=== PATIENT | female | born 1940 | race Two or more races ===

== ENCOUNTER → 2024-01-24 | Outpatient (CLI) | payer MEDICARE, SELFPAY ==
[2024-01-24 09:28] LABS: Collection Type, Urine Clean Catch
[2024-01-24 09:57] LABS: Basophils % (Auto) 0 % (0-2.5); Eosinophils # (Auto) 0.1 Thou/mm3 (0.0-0.5); Eosinophils % (Auto) 1 % (0-10); Hematocrit 40.4 % (36.0-46.0); Hemoglobin 13.8 g/dL (12.0-16.0); Immature Granulocytes % (Auto) 0 % (0-0); Immature Granulocytes Auto 0.03 Thou/mm3 (0.00-0.00); Lymphocytes # (Auto) 1.4 Thou/mm3 (1.0-4.8); Lymphocytes % (Auto) 16 % (10-50); Mean Corpuscular HGB Conc 34.2 g/dl (31.0-37.0); Mean Corpuscular Hemoglobin 31.2 pg (25.0-35.0); Mean Corpuscular Volume 91 fL (80-100); Monocytes # (Auto) 0.8 Thou/mm3 (0.0-0.8); Monocytes % (Auto) 9 % (0-12); Neutrophils # (Auto) 6.4 Thou/mm3 (1.8-7.7); Neutrophils % (Auto) 74 % (37-80); Nucleated Red Blood Cell % 0 /100 WBC (0); Platelet Count 240 Thou/mm3 (140-440); RDW Standard Deviation 41.5 fL (36.4-46.3); Red Blood Count 4.43 Miln/mm3 (4.00-5.20); White Blood Count 8.7 Thou/mm3 (3.6-11.0)
[2024-01-24 10:06] LABS: Bilirubin,Urine Negative (Negative); Blood,Urine Negative (Negative); Clarity,Urine Turbid (Clear/Hazy); Color,Urine Yellow (Lt Yel-Yel); Glucose, Urine Negative (Negative); Ketones,Urine Negative (Negative); Leukocyte Esterase,Urine Positive (Negative); Nitrite,Urine Negative (Negative); PH,Urine 6.5 (5.0-7.0); Protein,Urine Trace (Neg - Trace); RBC,Urine 29 /hpf (0-3); Specific Gravity,Urine 1.014 (1.001-1.035); Squamous Epithelial Cell,Urine 1 /hpf (0-5); Urobilinogen,Urine Negative mg/dL (0.0-1.0); WBC,Urine 830 /hpf (0-5)
[2024-01-24 10:23] LABS: Culture Indicated,Urine Yes
[2024-01-24 10:39] LABS: Albumin, Serum 4.3 gm/dL (3.4-4.8); Anion Gap 4 (7-16); BUN/Creatinine Ratio 20 Ratio (12-20); Blood Urea Nitrogen 16 mg/dL (9-23); Calcium 9.5 mg/dL (8.3-10.6); Calcium (Corrected) 9.5 mg/dL (8.5-10.1); Carbon Dioxide 30.1 mMol/L (20.0-31.0); Chloride 95 mMol/L (98-107); Creatinine (Component) 0.8 mg/dL (0.6-1.3); Glucose 68 mg/dL (74-106); Osmolality,Calculated 258 (275-295); Phosphorous 3.3 mg/dL (2.4-5.1); Potassium 4.2 mMol/L (3.4-5.1); Sodium 129 mMol/L (136-145); eGFR > 60 See Note
== END | disposition home or self-care (01) ==
PROVIDERS: PCP Internal Medicine; Referring Provider Internal Medicine; Visit Provider Internal Medicine
DX: I10 Essential (primary) hypertension (principal)
CPT/HCPCS: 36415; 80069; 81001; 85025; 87077; 87086; 87186

== ENCOUNTER 2024-02-27 16:54 | Emergency (ER) | payer MEDICARE, SELFPAY ==
[2024-02-27 16:55] VITALS: BMI 21.9
[2024-02-27 17:04] VITALS: BP 205/82; BP 209/82; PULSE 71; RESP 18; TEMP 36.6; O2SAT 99
--- NOTE | 2024-02-27 17:09 | XR_ITS ---
Examination: PA lateral chest 2 views Technique: Upright PA lateral chest 2 views Exam date and time: February 27, 2024 at 1737 hrs. Comparison December 25, 2023 Indications: Onset high blood pressure today. Findings: Mild enlargement cardiac contour Prominent vascular congestion Early septal edema at the lung bases The osseous structures are intact Impression: Early heart failure
--- NOTE | 2024-02-27 17:09 | EKG_ITS ---
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
--- NOTE | 2024-02-27 17:10 | XR_ITS ---
Examination: CT brain head without contrast. 2-D sagittal coronal reconstructions Date and time of exam:February 27, 2024 1727 hrs. Indications: High blood pressure with headache today and yesterday CTDI: vol (mGy):48 DLP: (mGycm):919 Technique: Multiple CT axial sections of the brain have been obtained, 5 mm slice thickness. Contrast has not been administered. 2-D sagittal, coronal reconstructions have been obtained Low dose protocols were performed. One or more of the following dose reduction techniques were used; automated exposure control, adjustment of the mA and/or KV according to patient size, use of iterative reconstruction technique. Findings: No significant ventricular enlargement. Intra-axial or extra-axial hemorrhage density is not seen. No mass effect or midline shift Basal cisterns are not remarkable. Fourth ventricle is midline. Cranial vault intact. Impression: Negative for acute hemorrhage, mass effect or midline shift
--- NOTE | 2024-02-27 17:10 | PD.EDRME ---
Rapid Medical Screening Exam RME Arrival date/time: 02/27/24 16:54 83-year-old female presents to the emergency department today complaints of headache and generalized weakness which began today Chief Complaint: Headache Time Seen by Provider: 02/27/24 17:01 Vital signs: Vital Signs Temperature 97.9 F 02/27/24 17:04 Pulse Rate 71 02/27/24 17:04 Respiratory Rate 18 02/27/24 17:04 Blood Pressure 209/82 H 02/27/24 17:04 Pulse Oximetry (%) 99 02/27/24 17:04 Oxygen Delivery Method Room Air 02/27/24 17:04
[2024-02-27 17:29] LABS: Basophils % (Auto) 0 % (0-2.5); Eosinophils # (Auto) 0.1 Thou/mm3 (0.0-0.5); Eosinophils % (Auto) 1 % (0-10); Hematocrit 40.2 % (36.0-46.0); Hemoglobin 13.9 g/dL (12.0-16.0); Immature Granulocytes % (Auto) 0 % (0-0); Immature Granulocytes Auto 0.03 Thou/mm3 (0.00-0.00); Lymphocytes # (Auto) 1.9 Thou/mm3 (1.0-4.8); Lymphocytes % (Auto) 21 % (10-50); Mean Corpuscular HGB Conc 34.6 g/dl (31.0-37.0); Mean Corpuscular Hemoglobin 30.7 pg (25.0-35.0); Mean Corpuscular Volume 89 fL (80-100); Monocytes # (Auto) 0.8 Thou/mm3 (0.0-0.8); Monocytes % (Auto) 8 % (0-12); Neutrophils # (Auto) 6.1 Thou/mm3 (1.8-7.7); Neutrophils % (Auto) 69 % (37-80); Nucleated Red Blood Cell % 0 /100 WBC (0); Platelet Count 208 Thou/mm3 (140-440); RDW Standard Deviation 41.1 fL (36.4-46.3); Red Blood Count 4.53 Miln/mm3 (4.00-5.20); White Blood Count 8.9 Thou/mm3 (3.6-11.0)
[2024-02-27 17:56] LABS: Partial Thromboplastin Time 28.3 Seconds (22.0-36.0); Prothrombin Time 10.6 Seconds (9.0-12.2)
[2024-02-27 17:58] LABS: Alanine Aminotransferase 17 U/L (10-49); Albumin, Serum 4.7 gm/dL (3.4-4.8); Alkaline Phosphatase 80 U/L (46-116); Anion Gap 7 (7-16); Aspartate Amino Transferase 20 U/L (0-34); BUN/Creatinine Ratio 22 Ratio (12-20); Bilirubin,Total 0.3 mg/dL (0.3-1.2); Blood Urea Nitrogen 20 mg/dL (9-23); Calcium 9.9 mg/dL (8.3-10.6); Calcium (Corrected) 9.9 mg/dL (8.5-10.1); Carbon Dioxide 26.4 mMol/L (20.0-31.0); Chloride 93 mMol/L (98-107); Creatinine (Component) 0.9 mg/dL (0.6-1.3); Estimated Creatinine Clearance 38.8 mL/min (>60); Globulin 2.4 gm/dL (2.3-3.5); Glucose 136 mg/dL (74-106); Magnesium 2.1 mg/dL (1.6-2.6); Osmolality,Calculated 257 (275-295); Potassium 4.6 mMol/L (3.4-5.1); Sodium 126 mMol/L (136-145); Total Protein 7.1 gm/dL (5.7-8.2); Troponin I < 0.020 ng/mL (0.0-0.045); eGFR > 60 See Note
[2024-02-27 18:15] LABS: B-Type Natriuretic Peptide 81 pg/mL (0-100)
[2024-02-27 18:25] LABS: Collection Type, Urine Clean Catch
[2024-02-27 18:30] LABS: Bilirubin,Urine Negative (Negative); Blood,Urine Negative (Negative); Clarity,Urine Clear (Clear/Hazy); Color,Urine Colorless (Lt Yel-Yel); Glucose, Urine Negative (Negative); Ketones,Urine Negative (Negative); Leukocyte Esterase,Urine Negative (Negative); Nitrite,Urine Negative (Negative); Protein,Urine Negative (Neg - Trace); RBC,Urine 2 /hpf (0-3); Specific Gravity,Urine 1.009 (1.001-1.035); Squamous Epithelial Cell,Urine 1 /hpf (0-5); Urobilinogen,Urine Negative mg/dL (0.0-1.0); WBC,Urine < 1 /hpf (0-5)
--- NOTE | 2024-02-27 19:30 | EDNOTE_ITS ---
ED Headache RME/HPI General Chief Complaint: Headache Stated Complaint: RIGHT SIDE HEAD PAIN, BP OF 228/98 Time Seen by Provider: 02/27/24 17:01 Arrival date/time: 02/27/24 16:54 Limitations: no limitations RME / HPI RME / HPI Narrative: 02/27/24 16:54 83-year-old female presents to the emergency department today complaints of headache and generalized weakness which began today ------- Dr. Rincon's Main ED Evaluation: 83yo female with a history of HTN presents to the ED for a chief complaint of generalized weakness. 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 She denies any BLE swelling, UTI symptoms or any other associated symptoms. Denies any falls or injuries. Patient does not feel like she is falling over to 1 side or the other. Related Data Home Medications ?Medication ?Instructions ?Recorded ?Confirmed carvedilol 3.125 mg tablet 3.125 mg PO BID 09/04/23 09/07/23 hydralazine 25 mg tablet 50 mg PO TID 09/04/23 09/07/23 Allergies Allergy/AdvReac Type Severity Reaction Status Date / Time amlodipine Allergy Severe Hives Verified 02/27/24 16:57 codeine Allergy Intermediate INCREASED Verified 02/27/24 16:57 HEART RATE promethazine Allergy Intermediate INCREASED Verified 02/27/24 16:57 HEART RATE atorvastatin Allergy Mild JOINT PAIN Verified 02/27/24 16:57 albuterol Allergy Palpitation Verified 02/27/24 16:57 s clonidine Allergy Hallucinati Verified 02/27/24 16:57 ng diltiazem Allergy Swelling Verified 02/27/24 16:57 of Lip/Tongue/Throat losartan Allergy Confusion Verified 02/27/24 16:57 morphine Allergy Hallucinati Verified 02/27/24 16:57 ng Review of Systems Review of Systems Systems Reviewed: All systems reviewed, normal except as documented Past Medical History Past Medical History NEUROLOGIC: Positive Neurological Disorders and Migraine; Negative Seizures CARDIAC: Positive Cardiac Disorders and Hypertension; Negative Congestive Heart Failure RESPIRATORY: Positive Pneumonia; Negative Chronic Obstructive Pulmonary Disease (COPD), Asthma, Tuberculosis or Sleep Apnea GASTROINTESTINAL: Positive Gastrointestinal Disorders and Gall Bladder Disease; Negative Hepatitis GENITOURINARY: Negative Genitourinary Disorders or Renal Disease REPRODUCTIVE: Positive Previous Pregnancies MUSCULOSKELETAL: Positive Musculoskeletal Disorders, Arthritis and Gout ENT: Positive Cataracts ENDOCRINE: Positive Endocrine Disorders; Negative Diabetes Mellitus Type 1 or Diabetes Mellitus Type 2 HEMATOLOGIC: Negative Blood Disorders or Sickle Cell Disease PSYCHO/SOCIAL: Negative Post Traumatic Stress Disorder OTHER HISTORY: Positive Shingles, Chicken Pox, Measles and Mumps; Negative Hospitalization, Autoimmune Disease, Falls, Blood Transfusions, Anesthesia Reactions, Chemotherapy, Radiation Therapy, MRSA or Cancer Family History FAMILY HISTORY: Positive Family Psychiatric Problems, Family Cardiac Disorders, Family Cancer and Family Surgery; Negative Family Respiratory Disorders, Family Gastrointestinal Problems or Family Anesthesia Reaction Surgical History SURGICAL: Positive Abdominal Surgery, Bowel Surgery, Hysterectomy and Tubal Ligation; Negative Cardiac Surgery Social History SMOKING STATUS: Never smoker SECOND HAND EXPOSURE: No SUBSTANCE USE: does not use ED Exam General Limitations: Present no limitations General appearance: Present alert, in no apparent distress and other (looks frail and flushed, nondiaphoretic) Head Head exam: Present atraumatic Eye Eye exam: Present normal appearance, PERRL and EOMI ENT ENT exam: Present normal exam, normal oropharynx and mucous membranes moist Neck Neck exam: Present normal inspection, full ROM and trachea midline Chest Chest inspection: Present normal inspection and symmetric chest wall rise Respiratory Respiratory exam: Present normal lung sounds bilaterally Cardiovascular Cardiovascular exam: Present regular rate, normal rhythm and normal heart sounds Abdominal Exam Abdominal exam: Present soft and normal bowel sounds Extremities Exam Extremities exam: Present normal inspection and full ROM Back Exam Back exam: Present normal inspection and full ROM Neurological Exam Neurological exam: Present alert, oriented X3 and CN II-XII intact Psychiatric Psychiatric exam: Present normal affect and normal mood Skin Skin exam: Present warm, dry, intact and normal color Course Quality Measures none Orders Category Date Time Status EKG (ED ONLY) *Do not use* NOW Care 02/27/24 17:09 Completed Saline [Insert IV] STAT Care 02/27/24 20:[address] head/brain wo con Stat Exams 02/27/24 17:10 Completed EKG (ED Only) Stat Exams 02/27/24 17:09 Draft XR chest 2V Stat Exams 02/27/24 17:09 Completed B-Type Natriuretic Peptide Stat Lab 02/27/24 17:24 Completed CBC Stat Lab 02/27/24 17:24 Completed Comprehensive Metabolic Panel Stat Lab 02/27/24 17:24 Completed Magnesium Stat Lab 02/27/24 17:24 Completed Partial Thromboplastin Time Stat Lab 02/27/24 17:24 Completed Prothrombin Time with INR Stat Lab 02/27/24 17:24 Completed Troponin I Stat Lab 02/27/24 17:24 Completed Troponin I Stat Lab 02/27/24 21:21 Completed Urinalysis Stat Lab 02/27/24 17:39 Completed Sodium Chloride 0.9% 500 ml [Ns] 500 ml Med 02/27/24 20:02 Discontinued IV 999 mls/hr hydrALAZINE INJ [Apresoline Inj] Med 02/27/24 20:02 Discontinued 10 mg IV X1 ONE hydrALAZINE INJ [Apresoline Inj] Med 02/27/24 21:41 Discontinued 10 mg IVP X1 ONE Reevaluation(s) Reevaluation #1: Patient's blood pressure is 162 systolically. Patient states she feels significantly better compared to when she came in and feels comfortable going home. Time: 22:18 Vital Signs Vital signs: Vital Signs Temperature 97.9 F 02/27/24 17:04 Pulse Rate 71 02/27/24 17:04 Respiratory Rate 18 02/27/24 17:04 Blood Pressure 209/82 H 02/27/24 17:04 Pulse Oximetry (%) 99 02/27/24 17:04 Oxygen Delivery Method Room Air 02/27/24 17:04 Pulse ox is 99% on room air, which is normal according to my interpretation. Headache MDM Narrative MDM Narrative:: Patient otherwise improved after dose of hydralazine and IV fluids. She is not really having significant amount of weakness, and otherwise normal finger-nose. Do not suspect cerebellar infarct at this time. No trauma. Blood pressure improved. Patient feels comfortable going home. No evidence of UTI. Patient data External records reviewed:: [facility] previous records (Per chart review, patient was seen here on 12/25/23 for hypertension.) Clinical information provided by:: patient Social determinants that could affect healthcare access:: none Patient has the following chronic illnesses:: HTN How is presenting disease/condition affected by chronic disease/condition?: caused by Evaluation data The following diagnostics were reviewed and interpreted by me:: lab results, radiology exam(s) and EKG tracing(s) Lab and/or radiology exams considered but not ordered:: none Interpretation Summary: CBC is normal, Sodium is low at 126, Glucose is 136, Initial and repeat troponins are normal, BNP is normal, UA is unremarkable, according to my interpretation. EKG done at 1720, NSR, rate of 68, right of atrial enlargement, normal intervals, nonspecific ST-T wvae changes in lead III, no STEMI, unchanged from previous EKG done in 12/2023 ----- I have personally reviewed the radiology data and agree with the radiologist's interpretation below: [facility] Signed Patient: CONRAD CONROY [facility]. Record#: [id number] Birthdate: 1940 Age/Sex: 83 / F Location: [facility] Attending Dr: Ordering Physician: Austin PEREIRA)Wally NP Date of Service: 02/27/24 Procedure(s): XR chest 2V Accession Number(s): [id number] cc: Earl Patel MD; Austin PEREIRA)Wally NP; Harry Beck MD~ Examination: PA lateral chest 2 views Technique: Upright PA lateral chest 2 views Exam date and time: February 27, 2024 at 1737 hrs. Comparison December 25, 2023 Indications: Onset high blood pressure today. Findings: Mild enlargement cardiac contour Prominent vascular congestion Early septal edema at the lung bases The osseous structures are intact Impression: Early heart failure Dictated By: Harry Beck MD Signed By: <Electronically signed by Harry Beck MD in OV> 02/27/24 1748 ------ [facility] Report Signed Patient: CONRAD CONROY [facility]. Record#: [id number] Birthdate: 1940 Age/Sex: 83 / F Location: [facility] Attending Dr: Ordering Physician: Austin PEREIRA)Wally NP Date of Service: 02/27/24 Procedure(s): CT head/brain wo con Accession Number(s): [id number] cc: Earl Patel MD; Austin PEREIRA)Wally NP; Harry Beck MD~ Examination: CT brain head without contrast. 2-D sagittal coronal reconstructions Date and time of exam:February 27, 2024 1727 hrs. Indications: High blood pressure with headache today and yesterday CTDI: vol (mGy):48 DLP: (mGycm):919 Technique: Multiple CT axial sections of the brain have been obtained, 5 mm slice thickness. Contrast has not been administered. 2-D sagittal, coronal reconstructions have been obtained Low dose protocols were performed. One or more of the following dose reduction techniques were used; automated exposure control, adjustment of the mA and/or KV according to patient size, use of iterative reconstruction technique. Findings: No significant ventricular enlargement. Intra-axial or extra-axial hemorrhage density is not seen. No mass effect or midline shift Basal cisterns are not remarkable. Fourth ventricle is midline. Cranial vault intact. Impression: Negative for acute hemorrhage, mass effect or midline shift Dictated By: Harry Beck MD Signed By: <Electronically signed by Harry Beck MD in OV> 02/27/24 1756 Medications / Prescriptions Medications or Prescriptions considered but not ordered:: none Medication administrations:: Medication Administration History Discontinued Medications Hydralazine HCl (Hydralazine Inj 20 Mg/Ml Vial) 10 mg IV X1 ONE Stop: 02/27/24 20:03 Last Admin: 02/27/24 20:44 Dose: 10 mg Documented By: KATERYNA Hydralazine HCl (Hydralazine Inj 20 Mg/Ml Vial) 10 mg IVP X1 ONE Stop: 02/27/24 21:42 Last Admin: 02/27/24 22:17 Dose: Not Given Documented By: KATERYNA Non-Admin Reason: Cancelled by Provider Comments: per provider not to give due to bp 162/81 Sodium Chloride (Ns) 500 mls @ 999 mls/hr IV .Q31M ONE Stop: 02/27/24 20:32 Last Infusion: 02/27/24 22:51 Dose: Infused Documented By: Admin: 02/27/24 20:28 Dose: 999 mls/hr Documented By: OA see above Consultations Consultation(s) initiated? (list below): No Diagnosis Differential diagnosis headache: other (HTN urgency versus emergency, electrolyte abnormality, CVA, TIA, UTI) Most likely diagnosis given after review of the tests above:: see below Admission Indicated Admission indicated?: not indicated Admission Request Was there a request for admission?: No Disposition Plan Disposition Plan: Discharge Discharge Attestation Discharge Attestation: The patient and all family members were given an opportunity to ask questions and understood the discharge instructions. Discharge instructions specifically effects, indications for sooner follow up or return to the emergency department, and the expected course of current diagnosis. Patient condition: Stable Discharge Plan Plan Patient Disposition: HOME (Self Care) Patient condition on transfer: Stable Prescriptions/Referrals Prescriptions/Med Rec: No Action hydralazine 25 mg tablet 50 mg PO TID Patient Comments: TAKE 1 TABLET BY MOUTH 3 TIMES A DAY WITH FOOD FOR HIGH BLOOD PRESSURE carvedilol 3.125 mg tablet 3.125 mg PO BID Patient Comments: TAKE 1 TABLET BY MOUTH 2 TIMES PER DAY WITH FOOD FOR HIGH BLOOD PRESSURE Referrals: Earl Patel MD [Primary Care Provider] - In 1 week Problem List Clinical Impression: Hypertension, Hyponatremia Patient/Caregiver Discharge Instructions Education Materials: ED Hypertension, Established, ED Hyponatremia Additional Instructions: Please continue medications as prescribed. return to the ED for worsening symptoms or any other concerns. See your Doctor to review your medications or need for change in meds. Print Language: Malawian Stand Alone Forms: Rosie Award Info., Patient Portal Info Letter
[2024-02-27] MEDS: SODIUM CHLORIDE 0.9% 500 ML 500 ML 999 ML IV (20:28)
[2024-02-27 20:44] VITALS: BP 201/91; PULSE 70
[2024-02-27] MEDS: hydrALAZINE INJ 20 MG/ML VIAL 10 MG IV (20:44)
[2024-02-27 21:12] VITALS: BP 182/80; PULSE 74
[2024-02-27 21:57] LABS: Troponin I < 0.020 ng/mL (0.0-0.045)
[2024-02-27 22:16] VITALS: BP 162/81; PULSE 74; RESP 18; O2SAT 99
[2024-02-27 23:07] VITALS: RESP 18
== END 2024-02-27 23:07 | disposition home or self-care (01) ==
PROVIDERS: Nurse Practitioner Primary Care; Emergency Provider Emergency Medicine; PCP Family Medicine
DX: I11.0 Hypertensive heart disease with heart failure (principal); I50.9 Heart failure, unspecified; E87.1 Hypo-osmolality and hyponatremia; R94.31 Abnormal electrocardiogram [ECG] [EKG]
CPT/HCPCS: 36415; 70450; 71046; 80053; 81001; 83735; 83880; 84484; 85025; 85610; 85730; 93005; 96360; 96361; 99284; J0360; J7040

== ENCOUNTER 2024-04-12 13:06 | Emergency (ER) | payer MEDICARE, SELFPAY ==
[2024-04-12] VITALS (12 sets, daily range): BP systolic 150–220; BP diastolic 63–112; PULSE 56–90; RESP 16–20; TEMP 36.6–36.7; O2SAT 97–99; BMI 21.1
--- NOTE | 2024-04-12 13:33 | EKG_ITS ---
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
--- NOTE | 2024-04-12 13:35 | PD.EDADULT ---
ED General RME/HPI General Chief complaint: General Adult/Misc Complain Stated complaint: HIGH BLOOD PRESSURE 190 SYSTOLIC ASYMPTOMATIC Time Seen by Provider: 04/12/24 13:18 Arrival date/time: 04/12/24 13:06 RME / HPI RME / HPI narrative: 83-year-old female patient was sent to us by PCP for evaluation regarding elevated blood pressure. Apparently patient just started her new medication for blood pressure, metoprolol, losartan, this morning. Patient stopped taking hydralazine since yesterday. Today patient noted blood pressure above 200 systolic. Patient currently is not having any pain or complaints. Related Data Home Medications ?Medication ?Instructions ?Recorded ?Confirmed carvedilol 3.125 mg tablet 3.125 mg PO BID 09/04/23 09/07/23 hydralazine 25 mg tablet 50 mg PO TID 09/04/23 09/07/23 Previous Rx's ?Medication ?Instructions ?Recorded carvedilol 6.25 mg tablet (Coreg) 6.25 mg PO BID #60 tabs 04/12/24 losartan 50 mg tablet 50 mg PO BID #60 tabs 04/12/24 Allergies Allergy/AdvReac Type Severity Reaction Status Date / Time amlodipine Allergy Severe Hives Verified 04/12/24 13:08 codeine Allergy Intermediate INCREASED Verified 04/12/24 13:08 HEART RATE promethazine Allergy Intermediate INCREASED Verified 04/12/24 13:08 HEART RATE atorvastatin Allergy Mild JOINT PAIN Verified 04/12/24 13:08 albuterol Allergy Palpitation Verified 04/12/24 13:08 s clonidine Allergy Hallucinati Verified 04/12/24 13:08 ng diltiazem Allergy Swelling Verified 04/12/24 13:08 of Lip/Tongue/Throat losartan Allergy Confusion Verified 04/12/24 13:08 morphine Allergy Hallucinati Verified 04/12/24 13:08 ng Review of Systems Review of Systems Narrative Review of Systems: Review of system reviewed and within normal limits except mentioned in HPI ED Exam Narrative Physical exam: VITAL SIGNS: Reviewed. GENERAL APPEARANCE: Alert and interactive, follows commands, no acute distress, HEAD AND FACE: Non-traumatic. ENT: PERRL, pink conjunctivitis, eyelid no trauma, Mucous membrane moist. NECK: Supple, nontender, no nuchal rigidity. CHEST: No tenderness, no crepitus, no paradoxical movement, no retractions. LUNGS: Clear, well ventilated, symmetric, no rales, no wheezing, no ronchi, no stridor, good breath sounds bilaterally. HEART: Regular rate, regular rhythm, no murmur, no gallops. ABDOMEN: Soft, positive bowel sounds, nondistended, no guarding, nontender, no rebound, no masses, RECTAL: Deferred. GENITAL: Deferred. NEUROLOGICAL: Gross motor function intact sensory function intact, Appropriate for age. MUSCULOSKELETAL: low back nontender, full range of motion. EXTREMITIES: Nontender, full range of motion. SKIN: Color pink, dry, no rash, no lacerations, no abrasions, no contusions. LYMPHATICS: Deferred. Course Quality Measures none Orders Category Date Time Status Consult to Cardiology Stat Cons 04/12/24 16:09 Ordered CBC [CBC] Stat Lab 04/12/24 14:13 Completed CMP [Comprehensive Metabolic Panel] Stat Lab 04/12/24 14:13 Completed Magnesium Stat Lab 04/12/24 14:13 Completed Troponin I Stat Lab 04/12/24 14:13 Completed UA, C/S IF [Urinalysis, C/S if Indicated] Stat Lab 04/12/24 14:15 Completed Losartan [Cozaar] Med 04/12/24 15:20 Discontinued 50 mg PO X1 ONE carVEDILOL [Coreg] Med 04/12/24 15:30 Discontinued 12.5 mg PO X1 ONE carVEDILOL [Coreg] Med 04/12/24 15:31 Discontinued 6.25 mg PO X1 ONE hydrALAZINE HCL [Apresoline] Med 04/12/24 13:33 Discontinued 50 mg PO X1 ONE EKG (RT) Stat RT 04/12/24 13:33 Draft Vital Signs Vital signs: Vital Signs Temperature 98.1 F 04/12/24 13:26 Pulse Rate 62 04/12/24 13:26 Respiratory Rate 16 04/12/24 13:26 Blood Pressure 204/87 H 04/12/24 13:26 Pulse Oximetry (%) 99 04/12/24 13:26 Oxygen Delivery Method Room Air 04/12/24 13:26 [facility] Patient data External records reviewed:: None Clinical information provided by:: patient Social determinants that could affect healthcare access:: none Patient has the following chronic illnesses:: Hypertension How is presenting disease/condition affected by chronic disease/condition?: exacerbated by Evaluation data The following diagnostics were reviewed and interpreted by me:: lab results and EKG tracing(s) Lab and/or radiology exams considered but not ordered:: None Interpretation Summary: EKG showed sinus rhythm, ventricular to 60 bpm, no ST segment elevation or depression noted. Laboratory workup all came back unremarkable. Medications Medications considered but not ordered:: None Medication administrations:: Medication Administration History Discontinued Medications Carvedilol (Carvedilol 3.125 Mg Tablet) 12.5 mg PO X1 ONE Stop: 04/12/24 15:31 Last Admin: 04/12/24 15:38 Dose: Not Given Documented By: Non-Admin Reason: Cancelled by Provider Carvedilol (Carvedilol 3.125 Mg Tablet) 6.25 mg PO X1 ONE Stop: 04/12/24 15:32 Last Admin: 04/12/24 15:33 Dose: 6.25 mg Documented By: Hydralazine HCl (Hydralazine Hcl 25 Mg Tablet) 50 mg PO X1 ONE Stop: 04/12/24 13:34 Last Admin: 04/12/24 14:02 Dose: 50 mg Documented By: Losartan Potassium (Losartan Potassium 25 Mg Tablet) 50 mg PO X1 ONE Stop: 04/12/24 15:21 Last Admin: 04/12/24 15:35 Dose: 50 mg Documented By: Losartan, hydralazine, Coreg Consultations Consultation(s) initiated? (list below): Yes Consultation #1 (Physician, Specialty, Details): Dr Hines Diagnosis Differential Diagnosis ED Complaint MDM: Hypertensive urgency, poor medication compliance Most likely diagnosis given after review of the tests above:: Hypertensive urgency Admission Indicated Admission indicated?: not indicated Explain why admission is indicated or not indicated:: Stable Admission Request Was there a request for admission?: No Disposition Plan Disposition Plan: Discharge Discharge Attestation Discharge Attestation: The patient and all family members were given an opportunity to ask questions and understood the discharge instructions. Discharge instructions specifically effects, indications for sooner follow up or return to the emergency department, and the expected course of current diagnosis. Patient condition: Stable Medical Decision Making MDM Narrative MDM Narrative: 83-year-old female patient was sent to us by PCP for evaluation regarding elevated blood pressure. Apparently patient just started her new medication for blood pressure, metoprolol, losartan, this morning. Patient stopped taking hydralazine since yesterday. Today patient noted blood pressure above 200 systolic. Patient currently is not having any pain or complaints. Patient's workup today all came back normal. EKG also came back with sinus rhythm, ventricular rate of 60 bpm, no ST segment elevation depression noted. Patient received hydralazine initially, Coreg 6.25 and losartan 50 mg p.o. Prior to discharge patient blood pressure was noted to be 153/78. Heart rate of 66. Patient is asymptomatic no complaints. I spoke with patient's book packer, Dr. Yosef Baum, who told me that patient is okay to go home increase Coreg to 6.25 twice daily and losartan 50 twice daily. Patient was sent home on prescription . Patient appears nontoxic and hemodynamically stable. Patient discharged home and instructed to follow-up with primary care provider in 24 to 48 hours. Instructed to return to the emergency department immediately if worsening of symptoms Differential Diagnosis Differential Diagnosis: Hypertensive urgency, poor medication compliance Lab Data 04/12/24 14:13 04/12/24 14:13 Labs: Lab Results 04/12/24 04/12/24 Range/Units 14:13 14:15 WBC 7.3 (3.6-11.0) Thou/mm3 RBC 4.82 (4.00-5.20) Miln/mm3 Hgb 14.6 (12.0-16.0) g/dL Hct 43.4 (36.0-46.0) % MCV 90 (80-100) fL MCH 30.3 (25.0-35.0) pg MCHC 33.6 (31.0-37.0) g/dl RDW Std Deviation 43.3 (36.4-46.3) fL Plt Count 238 (140-440) Thou/mm3 Neut % (Auto) 67 (37-80) % Lymph % (Auto) 23 (10-50) % [place] % (Auto) 8 (0-12) % Eos % (Auto) 1 (0-10) % Baso % (Auto) 0 (0-2.5) % Neut # (Auto) 4.9 (1.8-7.7) Thou/mm3 Lymph # (Auto) 1.7 (1.0-4.8) Thou/mm3 [place] # (Auto) 0.6 (0.0-0.8) Thou/mm3 Eos # (Auto) 0.1 (0.0-0.5) Thou/mm3 Baso # (Auto) 0.0 (0.0-0.2) Thou/mm3 Immature Gran # (Auto) 0.02 H (0.00-0.00) Thou/mm3 Absolute Nucleated RBC 0.00 (0.00-0.00) Thou/mm3 Immature Gran % 0 (0-0) % Nucleated RBC % 0 (0) /100 WBC Sodium 129 L (136-145) mMol/L Potassium 3.8 (3.4-5.1) mMol/L Chloride 93 L (98-107) mMol/L Carbon Dioxide 28.8 (20.0-31.0) mMol/L Anion Gap 7 (7-16) BUN 19 (9-23) mg/dL Creatinine 0.8 (0.6-1.3) mg/dL Estim Creat Clear Calc 45.6 L (>60) mL/min eGFR > 60 (60 - ) See Note BUN/Creatinine Ratio 24 H (12-20) Ratio Glucose 152 H (74-106) mg/dL Calculated Osmolality 264 L (275-295) Calcium 9.2 (8.3-10.6) mg/dL Corrected Calcium 9.2 (8.5-10.1) mg/dL Magnesium 1.9 (1.6-2.6) mg/dL Total Bilirubin 0.4 (0.3-1.2) mg/dL AST 27 (0-34) U/L ALT 18 (10-49) U/L Alkaline Phosphatase 91 (46-116) U/L Troponin I < 0.020 (0.0-0.045) ng/mL Total Protein 6.9 (5.7-8.2) gm/dL Albumin 4.6 (3.4-4.8) gm/dL Globulin 2.3 (2.3-3.5) gm/dL Albumin/Globulin Ratio 2.0 (1.2-2.2) Ur Collection Type Clean Catch Urine Color Lt-Yellow (Lt Yel-Yel) Urine Clarity Clear (Clear/Hazy) Urine pH 6.0 (5.0-7.0) Ur Specific [place] 1.021 (1.001-1.035) Urine Protein Negative (Neg - Trace) Urine Glucose (UA) Negative (Negative) Urine Ketones Negative (Negative) Urine Blood Trace (Negative) Urine Nitrite Negative (Negative) Urine Bilirubin Negative (Negative) Urine Urobilinogen (Auto) Negative (0.0-1.0) mg/dL Ur Leukocyte Esterase Negative (Negative) Urine RBC 7 H (0-3) /hpf Urine WBC 1 (0-5) /hpf Ur Squamous Epith Cells 1 (0-5) /hpf Urine Bacteria None (None) Ur Culture Indicated? Not Indicated Discharge Plan Plan Patient Disposition: HOME (Self Care) Disposition Comment: Stable Prescriptions/Referrals Prescriptions/Med Rec: New carvedilol [Coreg] 6.25 mg tablet 6.25 mg PO BID Qty: 60 0RF Rx Instructions: must administer with a meal/food losartan 50 mg tablet 50 mg PO BID Qty: 60 0RF No Action hydralazine 25 mg tablet 50 mg PO TID Patient Comments: TAKE 1 TABLET BY MOUTH 3 TIMES A DAY WITH FOOD FOR HIGH BLOOD PRESSURE carvedilol 3.125 mg tablet 3.125 mg PO BID Patient Comments: TAKE 1 TABLET BY MOUTH 2 TIMES PER DAY WITH FOOD FOR HIGH BLOOD PRESSURE Referrals: Earl Patel MD [Primary Care Provider] - In 1 week Problem List Clinical Impression: Hypertensive urgency Patient/Caregiver Discharge Instructions Discharge Activity: activity as tolerated Education Materials: Blood Pressure Check Steps Additional Instructions: Thank you for the opportunity for serving you today. You are stable for discharged . You are advised to: Follow-up with your book packer this Tuesday Return to ED for worsening of symptoms Increase oral fluids Take medication as prescribed Print Language: British Stand Alone Forms: Rosie Award Info., Patient Portal Info Letter HAI/MARY CARMEN Supervising Physician HAI/MARY CARMEN Supervising Physician: MD Valerie
[2024-04-12] MEDS: hydrALAZINE HCL 25 MG TABLET 50 MG PO ×2 (14:02→18:02)
[2024-04-12 14:22] LABS: Collection Type, Urine Clean Catch
[2024-04-12 14:26] LABS: Basophils % (Auto) 0 % (0-2.5); Eosinophils # (Auto) 0.1 Thou/mm3 (0.0-0.5); Eosinophils % (Auto) 1 % (0-10); Hematocrit 43.4 % (36.0-46.0); Hemoglobin 14.6 g/dL (12.0-16.0); Immature Granulocytes % (Auto) 0 % (0-0); Immature Granulocytes Auto 0.02 Thou/mm3 (0.00-0.00); Lymphocytes # (Auto) 1.7 Thou/mm3 (1.0-4.8); Lymphocytes % (Auto) 23 % (10-50); Mean Corpuscular HGB Conc 33.6 g/dl (31.0-37.0); Mean Corpuscular Hemoglobin 30.3 pg (25.0-35.0); Mean Corpuscular Volume 90 fL (80-100); Monocytes # (Auto) 0.6 Thou/mm3 (0.0-0.8); Monocytes % (Auto) 8 % (0-12); Neutrophils # (Auto) 4.9 Thou/mm3 (1.8-7.7); Neutrophils % (Auto) 67 % (37-80); Nucleated Red Blood Cell % 0 /100 WBC (0); Platelet Count 238 Thou/mm3 (140-440); RDW Standard Deviation 43.3 fL (36.4-46.3); Red Blood Count 4.82 Miln/mm3 (4.00-5.20); White Blood Count 7.3 Thou/mm3 (3.6-11.0)
[2024-04-12 14:46] LABS: Alanine Aminotransferase 18 U/L (10-49); Albumin, Serum 4.6 gm/dL (3.4-4.8); Alkaline Phosphatase 91 U/L (46-116); Anion Gap 7 (7-16); Aspartate Amino Transferase 27 U/L (0-34); BUN/Creatinine Ratio 24 Ratio (12-20); Bilirubin,Total 0.4 mg/dL (0.3-1.2); Blood Urea Nitrogen 19 mg/dL (9-23); Calcium 9.2 mg/dL (8.3-10.6); Calcium (Corrected) 9.2 mg/dL (8.5-10.1); Carbon Dioxide 28.8 mMol/L (20.0-31.0); Chloride 93 mMol/L (98-107); Creatinine (Component) 0.8 mg/dL (0.6-1.3); Estimated Creatinine Clearance 45.6 mL/min (>60); Globulin 2.3 gm/dL (2.3-3.5); Glucose 152 mg/dL (74-106); Osmolality,Calculated 264 (275-295); Potassium 3.8 mMol/L (3.4-5.1); Sodium 129 mMol/L (136-145); Total Protein 6.9 gm/dL (5.7-8.2); Troponin I < 0.020 ng/mL (0.0-0.045); eGFR > 60 See Note
[2024-04-12 14:51] LABS: Bilirubin,Urine Negative (Negative); Blood,Urine Trace (Negative); Clarity,Urine Clear (Clear/Hazy); Color,Urine Lt-Yellow (Lt Yel-Yel); Culture Indicated,Urine Not Indicated; Glucose, Urine Negative (Negative); Ketones,Urine Negative (Negative); Leukocyte Esterase,Urine Negative (Negative); Nitrite,Urine Negative (Negative); Protein,Urine Negative (Neg - Trace); RBC,Urine 7 /hpf (0-3); Specific Gravity,Urine 1.021 (1.001-1.035); Squamous Epithelial Cell,Urine 1 /hpf (0-5); Urobilinogen,Urine Negative mg/dL (0.0-1.0); WBC,Urine 1 /hpf (0-5)
[2024-04-12] MEDS: carVEDILOL 3.125 MG TABLET 6.25 MG PO (15:33)
[2024-04-12] MEDS: LOSARTAN POTASSIUM 25 MG TABLET 50 MG PO (15:35)
[2024-04-12 16:08] LABS: Magnesium 1.9 mg/dL (1.6-2.6)
--- NOTE | 2024-04-12 16:19 | PD.RESCONSUL ---
HPI Data of Consult Primary Care Provider: Earl Patel MD Consult Narrative History of present illness: Larissa is a 83 y/o male with PMHx of paroxysmal atrial fibrillation (on Eliquis), essential hypertension, palpitations, lower back pain, spontaneous ecchymoses, and cardiac murmur who comes for evaluation of elevated blood pressure 190s systolic with no associated symptoms of chest pain, chest palpitations, headache, nausea, or vomiting. Patient reports she took her losartan today and her metoprolol 100 XL which she was recently started after her manufacturing chief engineer, Dr. Bliss, I started her on and discontinued Coreg 3.125. She was recently diagnosed with paroxysmal atrial fibrillation diagnosed by Holter monitor. 50 mg she also had negative cardiac stress test and her echo showed normal LV and function, grade 1 diastolic dysfunction EF 66 5% with mild AV stenosis and calcification. She denies having any symptoms, but called her cardiology office to see what she should do. She was instructed to go to the ER for further workup. He is stating that she still has no chest pain or palpitations and wants to go home. She is wondering what she should do if when she goes home what blood pressure management she should be on. She has no other complaints at this time ED course: She arrived afebrile with a blood pressure of 204/87, heart rate of 62. She was worked up and was found to have a white count of 7.3, hemoglobin 14.6, sodium 129, BUN/creatinine of 19 and 0.8, potassium 3.8, magnesium 1.9. EKG showed normal sinus rhythm heart rate in the 60s. She was given losartan 50 and Coreg 6.25, and hydralazine 50. Cardiology was consulted for further workup. Past medical history: As above Surgeries: Cholecystectomy, appendectomy, hysterectomy, partial bowel resection Meds: Metoprolol XL 100, losartan 50 mg twice daily, Lexapro, hydroxyzine Allergies: Amlodipine (hives), diltiazem (swelling of lip/tongue/throat) Family history: Father at 84 years old pancreatic cancer, mother decreased 26 years old from childbirth from PE, brother has type 2 diabetes and CAD status post PCI and in 60s, sister has diabetes type 2, hypothyroidism Social history: Has 5 kids, lives with her in [place], retired and 1995, denies drug use, smoking history or alcohol use cc:: cc: Review of Systems Review of Systems Narrative Review of Systems: Constitutional: No fever, chills, fatigue, weakness, weight loss HEENT: No eye pain, vision loss, ear pain, hearing loss, dysphagia, Cardiovascular: No chest pain, palpitations, edema, pain with walking Respiratory: No cough, shortness of breath, wheezing GI: No NVD, abdominal pain, constipation, blood in stool, loss of appetite, heartburn Extremities: No presence of pitting edema MSK: No back pain, joint pain, joint swelling Neuro: No dizziness, numbness, weakness, headaches, seizures, tremors Psych: No anxiety, depression Exam Vital Signs Temp Pulse Resp BP Pulse Ox O2 Del Method 98 F 56 L 19 153/87 H 98 Room Air 04/12/24 16:04/12/24 16:04/12/24 16:01 04/12/24 16:04/12/24 16:04/12/24 16:01 Narrative Exam General: AAOx3, NAD, pleasant elderly female, wearing glasses HEENT: Moist mucous membranes, conjunctiva clear, EOMI, PERRLA, Cardiovascular: Possible 3/6 systolic murmur heard over [place], radial pulses +2 bilat, RRR Pulmonary: CTAB bilat no cough, no wheezing GI: No tenderness to light or deep palpitation, no guarding, rigidity, rebound tenderness or distension Extremities: No presence of trace or pitting edema in lower extremities bilaterally, dorsalis pedis pulses +2 bilaterally Neuro: AAOx3, no focal motor or sensory deficits in the UE or LE bilat Psych: A bit anxious Results Labs 04/12/24 14:13 04/12/24 14:13 Labs: Short CBC 04/12/24 Range/Units 14:13 WBC 7.3 (3.6-11.0) Thou/mm3 Hgb 14.6 (12.0-16.0) g/dL Hct 43.4 (36.0-46.0) % Plt Count 238 (140-440) Thou/mm3 BMP 04/12/24 14:13 Sodium 129 L Potassium 3.8 Chloride 93 L Carbon Dioxide 28.8 BUN 19 Creatinine 0.8 Glucose 152 H Calcium 9.2 Cardiac Enzymes 04/12/24 Range/Units 14:13 Troponin I < 0.020 (0.0-0.045) ng/mL Liver Function 04/12/24 Range/Units 14:13 Total Bilirubin 0.4 (0.3-1.2) mg/dL AST 27 (0-34) U/L ALT 18 (10-49) U/L Alkaline Phosphatase 91 (46-116) U/L Albumin 4.6 (3.4-4.8) gm/dL Urine 04/12/24 Range/Units 14:15 Urine Color Lt-Yellow (Lt Yel-Yel) Urine Clarity Clear (Clear/Hazy) Urine pH 6.0 (5.0-7.0) Ur Specific [place] 1.021 (1.001-1.035) Urine Protein Negative (Neg - Trace) Urine Glucose (UA) Negative (Negative) Quality Measures Quality Measures VTE prophylaxis Advance care planning discussed with:: patient Medications Home Medications and Allergies Home Medications ?Medication ?Instructions ?Recorded ?Confirmed ?Type carvedilol 3.125 mg tablet 3.125 mg PO BID 09/04/23 09/07/23 History hydralazine 25 mg tablet 50 mg PO TID 09/04/23 09/07/23 History Allergies Allergy/AdvReac Type Severity Reaction Status Date / Time amlodipine Allergy Severe Hives Verified 04/12/24 13:08 codeine Allergy Intermediate INCREASED Verified 04/12/24 13:08 HEART RATE promethazine Allergy Intermediate INCREASED Verified 04/12/24 13:08 HEART RATE atorvastatin Allergy Mild JOINT PAIN Verified 04/12/24 13:08 albuterol Allergy Palpitation Verified 04/12/24 13:08 s clonidine Allergy Hallucinati Verified 04/12/24 13:08 ng diltiazem Allergy Swelling Verified 04/12/24 13:08 of Lip/Tongue/Throat losartan Allergy Confusion Verified 04/12/24 13:08 morphine Allergy Hallucinati Verified 04/12/24 13:08 ng Visit Medications Discontinued Medications Carvedilol (Carvedilol 3.125 Mg Tablet) 12.5 mg PO X1 ONE Stop: 04/12/24 15:31 Last Admin: 04/12/24 15:38 Dose: Not Given Carvedilol (Carvedilol 3.125 Mg Tablet) 6.25 mg PO X1 ONE Stop: 04/12/24 15:32 Last Admin: 04/12/24 15:33 Dose: 6.25 mg Hydralazine HCl (Hydralazine Hcl 25 Mg Tablet) 50 mg PO X1 ONE Stop: 04/12/24 13:34 Last Admin: 04/12/24 14:02 Dose: 50 mg Losartan Potassium (Losartan Potassium 25 Mg Tablet) 50 mg PO X1 ONE Stop: 04/12/24 15:21 Last Admin: 04/12/24 15:35 Dose: 50 mg Assessment & Plan Plan Assessment Larissa is a 83 y/o male with PMHx of paroxysmal atrial fibrillation (on Eliquis), essential hypertension, palpitations, lower back pain, spontaneous ecchymoses, and cardiac murmur who comes to the ED for an evaluation of hypertensive urgency. #Hypertensive urgency #History of essential hypertension Patient called cardiology office who instructed patient to go to ER due to blood pressure being 190 systolic Patient is asymptomatic at this time Patient was recently discontinued off Coreg 3.25 and was started on metoprolol Patient did take metoprolol and losartan today, however it seems that patient is not getting enough hypertensive coverage Spoke with manufacturing chief engineer, Dr. Bliss who recommends to discharge patient as long as they improve with management Was given losartan 50, hydralazine 50 and Coreg 6.25 and blood pressure has improved to 150s systolic At this point we will have a current regimen for patient went to be discharged Patient will need to follow-up with manufacturing chief engineer in the following week Plan: ? Discharge patient with Coreg 6.25 mg twice daily ? Continue with losartan 50 mg twice daily ? Discontinue metoprolol ? Do not correct systolic blood pressure more than 25% the setting of hypertensive urgency within the first 24 hours ? Gave patient ER precautions in the setting of if patient continues to have elevated blood pressure above 180 and symptomatic or blood pressure worsens return to ER #History of paroxysmal atrial fibrillation #History of palpitations CHADS-VASc: 4 points meaning 4.8 stroke risk per year Patient recently had Holter in 03/30/2024, diagnosis paroxysmal A-fib Currently has Eliquis 5 mg twice daily we will continue with that Gave patient for 400 mg mag oxide x 1 in addition to potassium 20 mEq x 1 Plan: ? Continue with Eliquis 5 mg twice daily ? Keep magnesium and potassium above 2 and 4 respectively ? As above Patient seen and care discussed with my attending physician, Dr. Izaiah Miguel, PGY-1 Attending Provider Attestation/Addendum I reviewed the resident Dr. Baptiste consultation progress note and agree with the resident findings and plan in the note above and have also edited the documentation to reflect my findings and plan. Yosef Bliss M.D. Interventional Cardiology
[2024-04-12] MEDS: MAGNESIUM OXIDE 400 MG TABLET PO (16:37)
[2024-04-12] MEDS: POTASSIUM CHLORIDE 20 mEq TABCR PO (16:37)
[2024-04-12] MEDS: LABETALOL INJ 5 MG/ML VIAL 20 ML 20 MG IVP (19:19)
== END 2024-04-12 20:53 | disposition home or self-care (01) ==
PROVIDERS: Nurse Practitioner Family; Emergency Provider Emergency Medicine; PCP Family Medicine
DX: I16.0 Hypertensive urgency (principal); I10 Essential (primary) hypertension
CPT/HCPCS: 36415; 80053; 81001; 83735; 84484; 85025; 93005; 96374; 99284; J3490; A9270; J1920

== ENCOUNTER → 2024-04-23 | Outpatient (CLI) | payer MEDICARE, SELFPAY ==
[2024-04-23 08:48] LABS: Collection Type, Urine Clean Catch
[2024-04-23 09:32] LABS: Basophils % (Auto) 1 % (0-2.5); Eosinophils # (Auto) 0.1 Thou/mm3 (0.0-0.5); Eosinophils % (Auto) 1 % (0-10); Hematocrit 42.2 % (36.0-46.0); Hemoglobin 14.5 g/dL (12.0-16.0); Immature Granulocytes % (Auto) 0 % (0-0); Immature Granulocytes Auto 0.02 Thou/mm3 (0.00-0.00); Lymphocytes # (Auto) 1.3 Thou/mm3 (1.0-4.8); Lymphocytes % (Auto) 20 % (10-50); Mean Corpuscular HGB Conc 34.4 g/dl (31.0-37.0); Mean Corpuscular Hemoglobin 30.6 pg (25.0-35.0); Mean Corpuscular Volume 89 fL (80-100); Monocytes # (Auto) 0.6 Thou/mm3 (0.0-0.8); Monocytes % (Auto) 9 % (0-12); Neutrophils # (Auto) 4.3 Thou/mm3 (1.8-7.7); Neutrophils % (Auto) 69 % (37-80); Nucleated Red Blood Cell % 0 /100 WBC (0); Platelet Count 229 Thou/mm3 (140-440); RDW Standard Deviation 43.2 fL (36.4-46.3); Red Blood Count 4.74 Miln/mm3 (4.00-5.20); White Blood Count 6.3 Thou/mm3 (3.6-11.0)
[2024-04-23 09:45] LABS: Glucose Estimated Average 105 mg/dL (80-131); Hemoglobin A1C 5.3 % Hgb (4.8-6.0)
[2024-04-23 09:50] LABS: Alanine Aminotransferase 17 U/L (10-49); Albumin, Serum 4.4 gm/dL (3.4-4.8); Albumin/Globulin Ratio 2.1 (1.2-2.2); Alkaline Phosphatase 84 U/L (46-116); Anion Gap 4 (7-16); Aspartate Amino Transferase 22 U/L (0-34); BUN/Creatinine Ratio 21 Ratio (12-20); Bilirubin,Total 0.6 mg/dL (0.3-1.2); Blood Urea Nitrogen 15 mg/dL (9-23); Calcium 9.3 mg/dL (8.3-10.6); Calcium (Corrected) 9.3 mg/dL (8.5-10.1); Carbon Dioxide 29.9 mMol/L (20.0-31.0); Chloride 96 mMol/L (98-107); Cholesterol 151 mg/dL (132-200); Creatinine (Component) 0.7 mg/dL (0.6-1.3); Free T4 (Free Thyroxine) 1.21 ng/dL (0.89-1.76); Globulin 2.1 gm/dL (2.3-3.5); Glucose 94 mg/dL (74-106); HDL Cholesterol 50 mg/dL (40-60); LDL Cholesterol,Calculated 82 mg/dL (0-130); Magnesium 2.1 mg/dL (1.6-2.6); Osmolality,Calculated 261 (275-295); Potassium 4.2 mMol/L (3.4-5.1); Sodium 130 mMol/L (136-145); Thyroid Stimulating Hormone 2.84 uIU/mL (0.55-4.78); Total Protein 6.5 gm/dL (5.7-8.2); Triglycerides 93 mg/dL (30-150); eGFR > 60 See Note
[2024-04-23 09:55] LABS: Amorphous Crystals,Urine Present (Absent); Bilirubin,Urine Negative (Negative); Blood,Urine Negative (Negative); Clarity,Urine Turbid (Clear/Hazy); Color,Urine Lt-Yellow (Lt Yel-Yel); Glucose, Urine Negative (Negative); Ketones,Urine Negative (Negative); Leukocyte Esterase,Urine Positive (Negative); Nitrite,Urine Negative (Negative); Protein,Urine Trace (Neg - Trace); RBC,Urine 2 /hpf (0-3); Specific Gravity,Urine 1.015 (1.001-1.035); Squamous Epithelial Cell,Urine 6 /hpf (0-5); Urobilinogen,Urine Negative mg/dL (0.0-1.0); WBC,Urine < 1 /hpf (0-5)
== END | disposition home or self-care (01) ==
PROVIDERS: PCP Family Medicine; Referring Provider Internal Medicine; Visit Provider Internal Medicine
DX: Z00.00 Encounter for general adult medical examination without abnormal findings (principal); E78.2 Mixed hyperlipidemia; I10 Essential (primary) hypertension; I48.0 Paroxysmal atrial fibrillation
CPT/HCPCS: 36415; 80053; 80061; 81001; 83036; 83735; 84439; 84443; 85025

== ENCOUNTER 2024-06-21 17:47 | Emergency (ER) | payer MEDICARE, SELFPAY ==
--- NOTE | 2024-06-21 18:29 | EKG_ITS ---
[facility] Test Date: 2024-06-21 Pat Name: CONRAD CONROY Department: Room: - Gender: Female Cloth Designer: : 1940 Requested By: Ishan Doe Order Number: [id number] Reading MD: Ishan Doe Measurements Intervals [place] Rate: 75 P: 59 OR: 141 QRS: 28 QRSD: 88 T: 28 QT: 391 QTc: 439 Interpretive Statements SINUS RHYTHM POSSIBLE LEFT ATRIAL ENLARGEMENT [-0.1mV P-WAVE IN V1/V2] LEFT VENTRICULAR HYPERTROPHY AND ST-T CHANGE [VOLTAGE CRITERIA PLUS ST/T ABNORMALITY] Compared to ECG 04/12/2024 13:39:17 Left ventricular hypertrophy now present ST (T wave) deviation now present /store/S0/[id number]/ecg/[id number].pdf
[2024-06-21 18:40] VITALS: BP 204/94; BP 238/95; PULSE 72; RESP 20; TEMP 36.9; O2SAT 96
[2024-06-21 18:42] VITALS: BMI 22.3
--- NOTE | 2024-06-21 19:05 | XR_ITS ---
Examination: CT brain head without contrast. 2-D sagittal coronal reconstructions Date and time of exam:June 21, 2024 0727 hrs. Indications: Onset headaches today CTDI: vol (mGy):48.2 DLP: (mGycm):962 Technique: Multiple CT axial sections of the brain have been obtained, 5 mm slice thickness. Contrast has not been administered. 2-D sagittal, coronal reconstructions have been obtained Low dose protocols were performed. One or more of the following dose reduction techniques were used; automated exposure control, adjustment of the mA and/or KV according to patient size, use of iterative reconstruction technique. Findings: No significant ventricular enlargement. Intra-axial or extra-axial hemorrhage density is not seen. No mass effect or midline shift Basal cisterns are not remarkable. Fourth ventricle is midline. Cranial vault intact. Impression: Negative for acute hemorrhage, mass effect or midline shift Mild chronic ethmoid sinusitis
--- NOTE | 2024-06-21 19:06 | EDRME_ITS ---
Rapid Medical Screening Exam [facility] Arrival date/time: 06/21/24 17:47 82F with history of HTN (admitted multiples time here for this) presents to ED with elevated BP, MCKINNEY, and generalized weakness. Patient denies N/V, vision changes, AMS, seizures, LOC, CP, and SOB. Patient states symptoms started around 10/11 AM today and patient was working in the yard. Chief Complaint: Weakness Vital signs: Vital Signs Temperature 98.5 F 06/21/24 18:40 Pulse Rate 72 06/21/24 18:40 Respiratory Rate 20 06/21/24 18:40 Blood Pressure 204/94 H 06/21/24 18:40 Pulse Oximetry (%) 96 06/21/24 18:40 Oxygen Delivery Method Room Air 06/21/24 18:40
[2024-06-21 19:32] LABS: Collection Type, Urine Clean Catch
[2024-06-21 19:34] LABS: Basophils % (Auto) 0 % (0-2.5); Eosinophils # (Auto) 0.1 Thou/mm3 (0.0-0.5); Eosinophils % (Auto) 1 % (0-10); Hematocrit 43.1 % (36.0-46.0); Hemoglobin 15.2 g/dL (12.0-16.0); Immature Granulocytes % (Auto) 0 % (0-0); Immature Granulocytes Auto 0.03 Thou/mm3 (0.00-0.00); Lymphocytes # (Auto) 1.6 Thou/mm3 (1.0-4.8); Lymphocytes % (Auto) 22 % (10-50); Mean Corpuscular HGB Conc 35.3 g/dl (31.0-37.0); Mean Corpuscular Hemoglobin 30.8 pg (25.0-35.0); Mean Corpuscular Volume 87 fL (80-100); Monocytes # (Auto) 0.7 Thou/mm3 (0.0-0.8); Monocytes % (Auto) 10 % (0-12); Neutrophils # (Auto) 4.7 Thou/mm3 (1.8-7.7); Neutrophils % (Auto) 67 % (37-80); Nucleated Red Blood Cell % 0 /100 WBC (0); Platelet Count 212 Thou/mm3 (140-440); RDW Standard Deviation 40.5 fL (36.4-46.3); Red Blood Count 4.94 Miln/mm3 (4.00-5.20); White Blood Count 7.1 Thou/mm3 (3.6-11.0)
[2024-06-21 19:38] LABS: Bilirubin,Urine Negative (Negative); Blood,Urine Negative (Negative); Clarity,Urine Clear (Clear/Hazy); Color,Urine Colorless (Lt Yel-Yel); Glucose, Urine Negative (Negative); Ketones,Urine Negative (Negative); Leukocyte Esterase,Urine Negative (Negative); Nitrite,Urine Negative (Negative); PH,Urine 7.5 (5.0-7.0); Protein,Urine Negative (Neg - Trace); RBC,Urine 5 /hpf (0-3); Specific Gravity,Urine 1.009 (1.001-1.035); Squamous Epithelial Cell,Urine 1 /hpf (0-5); Urobilinogen,Urine Negative mg/dL (0.0-1.0); WBC,Urine 2 /hpf (0-5)
[2024-06-21 20:12] LABS: Alanine Aminotransferase 16 U/L (10-49); Albumin, Serum 4.5 gm/dL (3.4-4.8); Albumin/Globulin Ratio 1.7 (1.2-2.2); Alkaline Phosphatase 93 U/L (46-116); Anion Gap 7 (7-16); Aspartate Amino Transferase 27 U/L (0-34); BUN/Creatinine Ratio 20 Ratio (12-20); Bilirubin,Total 0.6 mg/dL (0.3-1.2); Blood Urea Nitrogen 14 mg/dL (9-23); Calcium 9.4 mg/dL (8.3-10.6); Calcium (Corrected) 9.4 mg/dL (8.5-10.1); Carbon Dioxide 26.2 mMol/L (20.0-31.0); Chloride 93 mMol/L (98-107); Creatinine (Component) 0.7 mg/dL (0.6-1.3); Estimated Creatinine Clearance 47.6 mL/min (>60); Globulin 2.7 gm/dL (2.3-3.5); Glucose 111 mg/dL (74-106); Osmolality,Calculated 254 (275-295); Potassium 3.8 mMol/L (3.4-5.1); Sodium 126 mMol/L (136-145); Total Protein 7.2 gm/dL (5.7-8.2); Troponin I < 0.020 ng/mL (0.0-0.045); eGFR > 60 See Note
--- NOTE | 2024-06-21 22:22 | PD.EDADULT ---
ED General RME/HPI General Chief complaint: Weakness Stated complaint: BLOOD PRESSURE HIGH; WEAKNESS Time Seen by Provider: 06/21/24 22:21 Arrival date/time: 06/21/24 17:47 RME / HPI RME / HPI narrative: 82F with history of HTN (admitted multiples time here for this) presents to ED with elevated BP, MCKINNEY, and generalized weakness. Patient denies N/V, vision changes, AMS, seizures, LOC, CP, and SOB. Patient states symptoms started around 10/11 AM today and patient was working in the yard. Denies any vomiting denies any other complaints no medications taken prior to arrival. Related Data Home Medications ?Medication ?Instructions ?Recorded ?Confirmed carvedilol 3.125 mg tablet 3.125 mg PO BID 09/04/23 09/07/23 hydralazine 25 mg tablet 50 mg PO TID 09/04/23 09/07/23 Previous Rx's ?Medication ?Instructions ?Recorded carvedilol 6.25 mg tablet (Coreg) 6.25 mg PO BID #60 tabs 04/12/24 losartan 50 mg tablet 50 mg PO BID #60 tabs 04/12/24 sodium chloride 1,000 mg soluble 1,000 mg PO QDAY #14 tabs 06/21/24 tablet Allergies Allergy/AdvReac Type Severity Reaction Status Date / Time amlodipine Allergy Severe Hives Verified 06/21/24 17:49 codeine Allergy Intermediate INCREASED Verified 06/21/24 17:49 HEART RATE promethazine Allergy Intermediate INCREASED Verified 06/21/24 17:49 HEART RATE atorvastatin Allergy Mild JOINT PAIN Verified 06/21/24 17:49 albuterol Allergy Palpitation Verified 06/21/24 17:49 s clonidine Allergy Hallucinati Verified 06/21/24 17:49 ng diltiazem Allergy Swelling Verified 06/21/24 17:49 of Lip/Tongue/Throat losartan Allergy Confusion Verified 06/21/24 17:49 morphine Allergy Hallucinati Verified 06/21/24 17:49 ng Review of Systems Review of Systems Narrative Review of Systems: Review of system reviewed and within normal limits except mentioned in HPI ED Exam Narrative Physical exam: VITAL SIGNS: Reviewed. GENERAL APPEARANCE: Alert and interactive, follows commands, no acute distress, HEAD AND FACE: Non-traumatic. ENT: PERRL, pink conjunctivitis, eyelid no trauma, Mucous membrane moist. NECK: Supple, nontender, no nuchal rigidity. CHEST: No tenderness, no crepitus, no paradoxical movement, no retractions. LUNGS: Clear, well ventilated, symmetric, no rales, no wheezing, no ronchi, no stridor, good breath sounds bilaterally. HEART: Regular rate, regular rhythm, no murmur, no gallops. ABDOMEN: Soft, positive bowel sounds, nondistended, no guarding, nontender, no rebound, no masses, RECTAL: Deferred. GENITAL: Deferred. NEUROLOGICAL: Gross motor function intact sensory function intact, Appropriate for age. MUSCULOSKELETAL: low back nontender, full range of motion. EXTREMITIES: Nontender, full range of motion. SKIN: Color pink, dry, no rash, no lacerations, no abrasions, no contusions. LYMPHATICS: Deferred. Course Quality Measures none Orders Category Date Time Status Blood glucose [Bedside Blood Glucose] NOW Care 06/21/24 18:29 Active EKG (ED ONLY) *Do not use* NOW Care 06/21/24 18:[address] head/brain wo con Stat Exams 06/21/24 19:05 Completed EKG (ED Only) Stat Exams 06/21/24 18:29 Draft CBC Stat Lab 06/21/24 19:19 Completed Comprehensive Metabolic Panel Stat Lab 06/21/24 19:19 Completed Troponin I Stat Lab 06/21/24 19:19 Completed Urinalysis Stat Lab 06/21/24 19:21 Completed Sodium Chloride 0.9% 1000 ml [Ns] 1,000 ml Med 06/21/24 22:22 Active IV 999 mls/hr Vital Signs Vital signs: Vital Signs Temperature 98.5 F 06/21/24 18:40 Pulse Rate 72 06/21/24 18:40 Respiratory Rate 20 06/21/24 18:40 Blood Pressure 204/94 H 06/21/24 18:40 Pulse Oximetry (%) 96 06/21/24 18:40 Oxygen Delivery Method Room Air 06/21/24 18:40 [facility] Patient data External records reviewed:: None Clinical information provided by:: patient Social determinants that could affect healthcare access:: none Patient has the following chronic illnesses:: Hypertension How is presenting disease/condition affected by chronic disease/condition?: exacerbated by Evaluation data The following diagnostics were reviewed and interpreted by me:: lab results, radiology exam(s) and EKG tracing(s) Lab and/or radiology exams considered but not ordered:: None Interpretation Summary: Patient's laboratory work came back unremarkable today except for a sodium of 126 chloride of 93. Urinalysis no UTI. CT scan of the head came back unremarkable. EKG normal sinus rhythm, ventricular rate of 75 bpm, no ST segment elevation depression noted. Medications Medications considered but not ordered:: None Medication administrations:: Medication Administration History Sodium Chloride (Ns) 1,000 mls @ 999 mls/hr IV .Q1H1M ONE Stop: 06/21/24 23:22 Last Admin: 06/21/24 22:48 Dose: 999 mls/hr Documented By: BD IV fluids for hydration Consultations Consultation(s) initiated? (list below): No Diagnosis Differential Diagnosis ED Complaint MDM: Hypertensive urgency, dehydration, hyponatremia, Most likely diagnosis given after review of the tests above:: Hyponatremia, hypertension Admission Indicated Admission indicated?: not indicated Explain why admission is indicated or not indicated:: Stable Admission Request Was there a request for admission?: No Disposition Plan Disposition Plan: Discharge Discharge Attestation Discharge Attestation: The patient and all family members were given an opportunity to ask questions and understood the discharge instructions. Discharge instructions specifically effects, indications for sooner follow up or return to the emergency department, and the expected course of current diagnosis. Patient condition: Stable Medical Decision Making MDM Narrative MDM Narrative: 82F with history of HTN (admitted multiples time here for this) presents to ED with elevated BP, MCKINNEY, and generalized weakness. Patient denies N/V, vision changes, AMS, seizures, LOC, CP, and SOB. Patient states symptoms started around 10/11 AM today and patient was working in the yard. Denies any vomiting denies any other complaints no medications taken prior to arrival. Patient's blood pressure was noted to be 161/77 heart rate of 76 beats prior to discharge. Patient laboratory workup unremarkable except for a sodium of 136, chloride of 93. CT scan of the head came back unremarkable Patient received IV fluids for hydration. Will be sent home on sodium chloride salt Differential Diagnosis Differential Diagnosis: Hypertensive urgency, dehydration, hyponatremia, Lab Data 06/21/24 19:19 06/21/24 19:19 Labs: Lab Results 06/21/24 06/21/24 Range/Units 19:19 19:21 WBC 7.1 (3.6-11.0) Thou/mm3 RBC 4.94 (4.00-5.20) Miln/mm3 Hgb 15.2 (12.0-16.0) g/dL Hct 43.1 (36.0-46.0) % MCV 87 (80-100) fL MCH 30.8 (25.0-35.0) pg MCHC 35.3 (31.0-37.0) g/dl RDW Std Deviation 40.5 (36.4-46.3) fL Plt Count 212 (140-440) Thou/mm3 Neut % (Auto) 67 (37-80) % Lymph % (Auto) 22 (10-50) % Charles % (Auto) 10 (0-12) % Eos % (Auto) 1 (0-10) % Baso % (Auto) 0 (0-2.5) % Neut # (Auto) 4.7 (1.8-7.7) Thou/mm3 Lymph # (Auto) 1.6 (1.0-4.8) Thou/mm3 Charles # (Auto) 0.7 (0.0-0.8) Thou/mm3 Eos # (Auto) 0.1 (0.0-0.5) Thou/mm3 Baso # (Auto) 0.0 (0.0-0.2) Thou/mm3 Immature Gran # (Auto) 0.03 H (0.00-0.00) Thou/mm3 Absolute Nucleated RBC 0.00 (0.00-0.00) Thou/mm3 Immature Gran % 0 (0-0) % Nucleated RBC % 0 (0) /100 WBC Sodium 126 L (136-145) mMol/L Potassium 3.8 (3.4-5.1) mMol/L Chloride 93 L (98-107) mMol/L Carbon Dioxide 26.2 (20.0-31.0) mMol/L Anion Gap 7 (7-16) BUN 14 (9-23) mg/dL Creatinine 0.7 (0.6-1.3) mg/dL Estim Creat Clear Calc 47.6 L (>60) mL/min eGFR > 60 (60 - ) See Note BUN/Creatinine Ratio 20 (12-20) Ratio Glucose 111 H (74-106) mg/dL Calculated Osmolality 254 L (275-295) Calcium 9.4 (8.3-10.6) mg/dL Corrected Calcium 9.4 (8.5-10.1) mg/dL Total Bilirubin 0.6 (0.3-1.2) mg/dL AST 27 (0-34) U/L ALT 16 (10-49) U/L Alkaline Phosphatase 93 (46-116) U/L Troponin I < 0.020 (0.0-0.045) ng/mL Total Protein 7.2 (5.7-8.2) gm/dL Albumin 4.5 (3.4-4.8) gm/dL Globulin 2.7 (2.3-3.5) gm/dL Albumin/Globulin Ratio 1.7 (1.2-2.2) Ur Collection Type Clean Catch Urine Color Colorless A (Lt Yel-Yel) Urine Clarity Clear (Clear/Hazy) Urine pH 7.5 H (5.0-7.0) Ur Specific [place] 1.009 (1.001-1.035) Urine Protein Negative (Neg - Trace) Urine Glucose (UA) Negative (Negative) Urine Ketones Negative (Negative) Urine Blood Negative (Negative) Urine Nitrite Negative (Negative) Urine Bilirubin Negative (Negative) Urine Urobilinogen (Auto) Negative (0.0-1.0) mg/dL Ur Leukocyte Esterase Negative (Negative) Urine RBC 5 H (0-3) /hpf Urine WBC 2 (0-5) /hpf Ur Squamous Epith Cells 1 (0-5) /hpf Urine Bacteria None (None) Discharge Plan Plan Patient Disposition: HOME (Self Care) Disposition Comment: Stable Prescriptions/Referrals Prescriptions/Med Rec: New sodium chloride 1,000 mg tablet,soluble 1,000 mg PO QDAY Qty: 14 0RF No Action hydralazine 25 mg tablet 50 mg PO TID Patient Comments: TAKE 1 TABLET BY MOUTH 3 TIMES A DAY WITH FOOD FOR HIGH BLOOD PRESSURE carvedilol 3.125 mg tablet 3.125 mg PO BID Patient Comments: TAKE 1 TABLET BY MOUTH 2 TIMES PER DAY WITH FOOD FOR HIGH BLOOD PRESSURE carvedilol [Coreg] 6.25 mg tablet 6.25 mg PO BID Qty: 60 0RF Rx Instructions: must administer with a meal/food losartan 50 mg tablet 50 mg PO BID Qty: 60 0RF Referrals: Earl Patel MD [Primary Care Provider] - In 1 week Problem List Clinical Impression: Weakness generalized, Hyponatremia Patient/Caregiver Discharge Instructions Discharge Activity: activity as tolerated Education Materials: ED Hyponatremia Additional Instructions: Thank you for the opportunity for serving you today. You are stable for discharged . You are advised to: Follow-up with your PCP in 1 to 2 days Return to ED for worsening of symptoms Take medication as prescribed Print Language: Mosotho Stand Alone Forms: Rosie Award Info., Patient Portal Info Letter PA/ENGINEERING PATTERNMAKER Supervising Physician PA/MARY CARMEN Supervising Physician: MD Sergey
[2024-06-21 22:25] VITALS: BP 161/77; PULSE 76; RESP 17; TEMP 36.9; O2SAT 100
[2024-06-21] MEDS: SODIUM CHLORIDE 0.9% 1000 ML 1,000 ML 999 ML IV (22:48)
[2024-06-21 23:55] VITALS: BP 206/90; PULSE 71; RESP 18; O2SAT 98
[2024-06-22 00:05] VITALS: BP 206/90; PULSE 71
[2024-06-22] MEDS: hydrALAZINE INJ 20 MG/ML VIAL 10 MG IV (00:05)
[2024-06-22 00:34] VITALS: BP 177/86; PULSE 64; RESP 16; O2SAT 96
== END 2024-06-22 00:36 | disposition home or self-care (01) ==
PROVIDERS: Physician Assistant; Emergency Provider Emergency Medicine; PCP Family Medicine
DX: E87.1 Hypo-osmolality and hyponatremia (principal); I10 Essential (primary) hypertension
CPT/HCPCS: 36415; 70450; 80053; 81001; 84484; 85025; 93005; 96360; 99284; J0360; J7030

== ENCOUNTER 2024-07-16 17:52 | Emergency (ER) | payer MEDICARE, SELFPAY ==
[2024-07-16] VITALS (7 sets, daily range): BP systolic 191–236; BP diastolic 86–101; PULSE 61–72; RESP 15–20; TEMP 37.1; O2SAT 98–99
--- NOTE | 2024-07-16 18:02 | EKG_ITS ---
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
--- NOTE | 2024-07-16 18:02 | XR_ITS ---
Examination: CT brain head without contrast. 2-D sagittal coronal reconstructions Date and time of exam:July 16, 2024 1915 hours Comparison June 21, 2024 INDICATIONS: Onset of headache dizziness today CTDI: vol (mGy):46.7 DLP: (mGycm):994 Technique: Multiple CT axial sections of the brain have been obtained, 5 mm slice thickness. Contrast has not been administered. 2-D sagittal, coronal reconstructions have been obtained Low dose protocols were performed. One or more of the following dose reduction techniques were used; automated exposure control, adjustment of the mA and/or KV according to patient size, use of iterative reconstruction technique. Findings: No significant ventricular enlargement. Intra-axial or extra-axial hemorrhage density is not seen. No mass effect or midline shift Basal cisterns are not remarkable. Fourth ventricle is midline. Cranial vault intact. Impression: Negative for acute hemorrhage, mass effect or midline shift Advise clinical correlation and follow up accordingly
--- NOTE | 2024-07-16 18:02 | XR_ITS ---
Examination: PA chest single view TECHNIQUE: Upright PA chest single view Exam date and time: July 16, 2024 1820 hours Comparison February 27, 2024 INDICATIONS: Chest pain beginning 2 days ago. FINDINGS: Mild enlargement cardiac contour Prominent vascular congestion Suspicious for early septal edema at the lung bases Normal lumbar pneumonia IMPRESSION: Suspicious for early heart failure and
--- NOTE | 2024-07-16 18:02 | PD.EDRME ---
Rapid Medical Screening Exam RME Arrival date/time: 07/16/24 17:52 84-year-old female presents to the emergency department for complaint of elevated blood pressure and fatigue Chief Complaint: General Adult/Misc Complain
[2024-07-16 18:49] LABS: Basophils % (Auto) 0 % (0-2.5); Eosinophils # (Auto) 0.1 Thou/mm3 (0.0-0.5); Eosinophils % (Auto) 1 % (0-10); Hematocrit 43.4 % (36.0-46.0); Hemoglobin 15.1 g/dL (12.0-16.0); Immature Granulocytes % (Auto) 0 % (0-0); Immature Granulocytes Auto 0.02 Thou/mm3 (0.00-0.00); Lymphocytes # (Auto) 1.8 Thou/mm3 (1.0-4.8); Lymphocytes % (Auto) 26 % (10-50); Mean Corpuscular HGB Conc 34.8 g/dl (31.0-37.0); Mean Corpuscular Hemoglobin 31.2 pg (25.0-35.0); Mean Corpuscular Volume 90 fL (80-100); Monocytes # (Auto) 0.7 Thou/mm3 (0.0-0.8); Monocytes % (Auto) 9 % (0-12); Neutrophils # (Auto) 4.5 Thou/mm3 (1.8-7.7); Neutrophils % (Auto) 63 % (37-80); Nucleated Red Blood Cell % 0 /100 WBC (0); Platelet Count 216 Thou/mm3 (140-440); RDW Standard Deviation 43.7 fL (36.4-46.3); Red Blood Count 4.84 Miln/mm3 (4.00-5.20); White Blood Count 7.1 Thou/mm3 (3.6-11.0)
--- NOTE | 2024-07-16 18:51 | EDNOTE_ITS ---
ED Dizzyness RME/HPI General Chief Complaint: General Adult/Misc Complain Stated Complaint: BP 218/110; SENT BY PCP Time Seen by Provider: 07/16/24 18:26 Arrival date/time: 07/16/24 17:52 RME / HPI RME / HPI Narrative: 07/16/24 17:52 84-year-old female presents to the emergency department for complaint of elevated blood pressure and fatigue Dr. Natarajan?s Main ED Evaluation: 84 y/o female with Hx of HTN and Atrial fibrillation BIB by neighbor presents to ED sudden dizziness, elevated BP of 214/110, feeling hot and flushed x 1 day. Patient was recently switched from Coreg to Metoprolol by her housing case manager, Dr. Fields. Patient can still walk, but states she feels spaced out . Patient contacted housing case manager's office and was advised to come to ED for evaluation. Patient regularly takes Eliquis and Losartan in the morning, and Metoprolol and Hydralazine in the evening. Denies runny nose or sweats. Admits to cough, but believes it may be due to medication. Patient has experienced anxiety attacks in the past where she hyperventilates, and says this does not feel similar. Patient denies any fever, chills, N/V or any other associated symptoms. Related Data Home Medications ?Medication ?Instructions ?Recorded ?Confirmed carvedilol 3.125 mg tablet 3.125 mg PO BID 09/04/23 hydralazine 25 mg tablet 50 mg PO TID 09/04/23 Previous Rx's ?Medication ?Instructions ?Recorded carvedilol 6.25 mg tablet (Coreg) 6.25 mg PO BID #60 t abs 04/12/24 losartan 50 mg tablet 50 mg PO BID #60 tabs sodium chloride 1,000 mg soluble 1,000 mg PO QDAY #14 tabs 06/21/24 tablet Allergies Allergy/AdvReac Type Severity Reaction Status Date / Time amlodipine Allergy Severe Hives Verified 07/16/24 17:55 codeine Allergy Intermediate INCREASED Verified 07/16/24 17:55 HEART RATE promethazine Allergy Intermediate INCREASED Verified 07/16/24 17:55 HEART RATE atorvastatin Allergy Mild JOINT PAIN Verified 07/16/24 17:55 albuterol Allergy Palpitation Verified 07/16/24 17:55 s clonidine Allergy Hallucinati Verified 07/16/24 17:55 ng diltiazem Allergy Swelling Verified 07/16/24 17:55 of Lip/Tongue/Throat losartan Allergy Confusion Verified 07/16/24 17:55 morphine Allergy Hallucinati Verified 07/16/24 17:55 ng Review of Systems Review of Systems Systems Reviewed: All systems reviewed, normal except as documented Past Medical History Past Medical History NEUROLOGIC: Positive Neurological Disorders and Migraine CARDIAC: Positive Cardiac Disorders, Atrial Fibrillation and Hypertension RESPIRATORY: Positive Pneumonia GASTROINTESTINAL: Positive Gastrointestinal Disorders and Gall Bladder Disease REPRODUCTIVE: Positive Previous Pregnancies MUSCULOSKELETAL: Positive Musculoskeletal Disorders, Arthritis and Gout ENDOCRINE: Positive Endocrine Disorders OTHER HISTORY: Positive Shingles, Chicken Pox, Measles and Mumps Family History FAMILY HISTORY: Positive Family Psychiatric Problems, Family Cardiac Disorders, Family Cancer and Family Surgery Surgical History SURGICAL: Positive Abdominal Surgery, Bowel Surgery, Hysterectomy and Tubal Ligation ED Exam Narrative Physical exam: GENERAL APPEARANCE: alert and oriented x 4, well-developed, well-nourished, no acute distress VITALS: All vitals were reviewed and the pulse ox is 98% on room air, which is normal according to my interpretation. HEENT: Normocephalic, atraumatic; pupils equal, round, reactive to light; EOMI; mucous membranes pink, moist; oropharynx clear NECK: Supple LUNGS: CTABL; no wheezes, no rales, no rhonchi HEART: Regular rate, regular rhythm; normal S1, S2; no murmurs ABDOMEN: non distended; normal BS; soft, no tenderness, no guarding, no rebound; no masses, no organomegaly, no hernia BACK: no CVA tenderness EXTREMITIES: atraumatic; no edema NEUROLOGIC: awake; alert and oriented x4; cranial nerves II-XII grossly intact; no focal sensory or motor deficits PSYCHIATRIC: appropriate mood and affect SKIN: warm, dry, normal color; no rashes Course Course Course Narrative: CXR is ordered for determining the etiology of elevated BP. Quality Measures none Orders Category Date Time Status Hse Specialist NOW Care 07/16/24 18:53 Completed Continuous Pulse Oximetry NOW Care 07/16/24 18:53 Completed EKG (ED ONLY) *Do not use* NOW Care 07/16/24 18:02 Completed Nasopharyngeal Suction NOW Care 07/16/24 21:20 Completed Orthostatic Vitals NOW Care 07/16/24 18:[address] head/brain wo con Stat Exams 07/16/24 18:02 Completed EKG (ED Only) Stat Exams 07/16/24 18:02 Draft XR chest 1V portable Stat Exams 07/16/24 18:02 Completed B-Type Natriuretic Peptide Stat Lab 07/16/24 18:35 Completed CBC Stat Lab 07/16/24 18:35 Completed Comprehensive Metabolic Panel Stat Lab 07/16/24 18:35 Completed Magnesium Stat Lab 07/16/24 18:35 Completed Partial Thromboplastin Time Stat Lab 07/16/24 18:35 Completed Prothrombin Time with INR Stat Lab 07/16/24 18:35 Completed Troponin I Stat Lab 07/16/24 18:35 Completed hydrALAZINE INJ [Apresoline Inj] Med 07/16/24 19:43 Discontinued 10 mg IV X1 ONE Reevaluation(s) Reevaluation #1: Blood pressure is 171/62. Patient is symptom free with a completely normal exam. Time: 21:52 Vital Signs Vital signs: Vital Signs Temperature 98.8 F 07/16/24 17:59 Pulse Rate 70 07/16/24 17:59 Respiratory Rate 20 07/16/24 17:59 Blood Pressure 221/97 H 07/16/24 17:59 Pulse Oximetry (%) 99 07/16/24 17:59 Oxygen Delivery Method Room Air 07/16/24 17:59 Dizziness MDM Narrative MDM Narrative:: Scribe Attestation: I, Radha Arreaga, am scribing for and in the presence of Dr. Natarajan. Provider Notation: Although this document has been carefully reviewed, there may still be some phonetic and other typographical errors.? These errors are purely grammatical due to imperfections in the software program and should not be construed in any way to? compromise the substance of the patient's medical care during this visit. CXR shows normal cardiac silhouette, normal sharp diaphragmatic edge, no infiltrates, normal costophrenic angles, according to my interpretation. 1941: BP 214/86, patient given hydralazine 10 mg. Patient data External records reviewed:: [facility] previous records (Prior ED records reviewed from 06/21/24. Patient was seen for Hyponatremia.) Clinical information provided by:: patient Social determinants that could affect healthcare access:: none Patient has the following chronic illnesses:: Migraine, Atrial Fibrillation, Hypertension, Gall Bladder Disease, Arthritis and Gout How is presenting disease/condition affected by chronic disease/condition?: exacerbated by Evaluation data The following diagnostics were reviewed and interpreted by me:: lab results, radiology exam(s) and EKG tracing(s) (EKG at 1804 shows normal sinus rhythm with rate of 66, left axis deviation, no ectopy, no signs of acute ischemia.) Lab and/or radiology exams considered but not ordered:: None Interpretation Summary: LABS Chemistry: Sodium 129, Chloride: 97, Anion Gap: 6, BUN/Creatinine: 23, B- Natriuretic Peptide 202. RADIOLOGY Chest X-Ray: Patient: CONRAD CONROY. Record#: [id number] Birthdate: 1940 Age/Sex: 84 / F Location: [facility] Attending Dr: Ordering Physician: Austin (KAREEM)Wally NP Date of Service: 07/16/24 Procedure(s): XR chest 1V portable Accession Number(s): [id number] cc: Earl Patel MD; Austin PEREIRA)Wally NP; Harry Beck MD~ Examination: PA chest single view TECHNIQUE: Upright PA chest single view Exam date and time: July 16, 2024 1820 hours Comparison February 27, 2024 INDICATIONS: Chest pain beginning 2 days ago. FINDINGS: Mild enlargement cardiac contour Prominent vascular congestion Suspicious for early septal edema at the lung bases Normal lumbar pneumonia IMPRESSION: Suspicious for early heart failure and Dictated By: Harry Beck MD Signed By: <Electronically signed by Harry Beck MD in OV> 07/16/[address]: Patient: CONRAD CONROY. Record#: [id number] Birthdate: 1940 Age/Sex: 84 / F Location: [facility] Attending Dr: Ordering Physician: Austin PEREIRA)Wally NP Date of Service: 07/16/24 Procedure(s): CT head/brain wo con Accession Number(s): [id number] cc: Earl Patel MD; Austin PEREIRA)Wally NP; Harry Beck MD~ Examination: CT brain head without contrast. 2-D sagittal coronal reconstructions Date and time of exam:July 16, 20241914 hours Comparison June 21, 2024 INDICATIONS: Onset of headache dizziness today CTDI: vol (mGy):46.7 DLP: (mGycm):994 Technique: Multiple CT axial sections of the brain have been obtained, 5 mm slice thickness. Contrast has not been administered. 2-D sagittal, coronal reconstructions have been obtained Low dose protocols were performed. One or more of the following dose reduction techniques were used; automated exposure control, adjustment of the mA and/or KV according to patient size, use of iterative reconstruction technique. Findings: No significant ventricular enlargement. Intra-axial or extra-axial hemorrhage density is not seen. No mass effect or midline shift Basal cisterns are not remarkable. Fourth ventricle is midline. Cranial vault intact. Impression: Negative for acute hemorrhage, mass effect or midline shift Advise clinical correlation and follow up accordingly Dictated By: Harry Beck MD Signed By: <Electronically signed by Harry Beck MD in OV> 07/16/242058 Medications / Prescriptions Medications or Prescriptions considered but not ordered:: None. Medication administrations:: Medication Administration History Discontinued Medications Hydralazine HCl (Hydralazine Inj 20 Mg/Ml Vial) 10 mg IV X1 ONE Stop: 07/16/24 19:44 Last Admin: 07/16/24 19:48 Dose: 10 mg Documented By: EF See above if any. Consultations Consultation(s) initiated? (list below): No Diagnosis Dizziness Differential Diagnosis: other (Anxiety reaction vs Hypertensive emergency vs Rapid A-Fib) Most likely diagnosis given after review of the tests above:: See clinical impression below. Admission Indicated Admission indicated?: not indicated Explain why admission is indicated or not indicated:: Patient has no emergent abnormalities in their studies and can be managed on an outpatient basis. Admission Request Was there a request for admission?: No Disposition Plan Disposition Plan: Discharge Discharge Attestation Discharge Attestation: The patient and all family members were given an opportunity to ask questions and understood the discharge instructions. Discharge instructions specifically effects, indications for sooner follow up or return to the emergency department, and the expected course of current diagnosis. Patient condition: Stable Discharge Plan Plan Patient Disposition: HOME (Self Care) Discharge Disposition comment: Stable for discharge home Patient condition on transfer: Stable Prescriptions/Referrals Prescriptions/Med Rec: No Action hydralazine 25 mg tablet 50 mg PO TID Patient Comments: TAKE 1 TABLET BY MOUTH 3 TIMES A DAY WITH FOOD FOR HIGH BLOOD PRESSURE carvedilol 3.125 mg tablet 3.125 mg PO BID Patient Comments: TAKE 1 TABLET BY MOUTH 2 TIMES PER DAY WITH FOOD FOR HIGH BLOOD PRESSURE sodium chloride 1,000 mg tablet,soluble 1,000 mg PO QDAY Qty: 14 0RF carvedilol [Coreg] 6.25 mg tablet 6.25 mg PO BID Qty: 60 0RF Rx Instructions: must administer with a meal/food losartan 50 mg tablet 50 mg PO BID Qty: 60 0RF Referrals: Yosef Bliss MD [Physician] - In 1 week Earl Patel MD [Primary Care Provider] - In 1 week Problem List Clinical Impression: Episode of hypertension Patient/Caregiver Discharge Instructions Discharge Activity: activity as tolerated Education Materials: Controlling High Blood Pressure, ED High Blood Pressure ... Additional Instructions: Please return to the emergency department if you have any worsening or any further medical problems and we will help you. Otherwise you should follow-up with your primary doctor and your housing case manager, Dr. Bliss, within the next several days. Print Language: Australian Stand Alone Forms: Rosie Award Info., Patient Portal Info Letter
[2024-07-16 19:13] LABS: Partial Thromboplastin Time 31.7 Seconds (22.0-36.0); Prothrombin Time 10.9 Seconds (9.0-12.2)
[2024-07-16 19:45] LABS: B-Type Natriuretic Peptide 202 pg/mL (0-100)
[2024-07-16 19:48] LABS: Alanine Aminotransferase 20 U/L (10-49); Albumin, Serum 4.7 gm/dL (3.4-4.8); Albumin/Globulin Ratio 1.7 (1.2-2.2); Alkaline Phosphatase 89 U/L (46-116); Anion Gap 6 (7-16); Aspartate Amino Transferase 26 U/L (0-34); BUN/Creatinine Ratio 23 Ratio (12-20); Bilirubin,Total 0.4 mg/dL (0.3-1.2); Blood Urea Nitrogen 18 mg/dL (9-23); Calcium 9.6 mg/dL (8.3-10.6); Calcium (Corrected) 9.6 mg/dL (8.5-10.1); Carbon Dioxide 26.3 mMol/L (20.0-31.0); Chloride 97 mMol/L (98-107); Creatinine (Component) 0.8 mg/dL (0.6-1.3); Globulin 2.7 gm/dL (2.3-3.5); Glucose 116 mg/dL (74-106); Magnesium 2.3 mg/dL (1.6-2.6); Osmolality,Calculated 261 (275-295); Potassium 3.9 mMol/L (3.4-5.1); Sodium 129 mMol/L (136-145); Total Protein 7.4 gm/dL (5.7-8.2); Troponin I < 0.020 ng/mL (0.0-0.045); eGFR > 60 See Note
[2024-07-16] MEDS: hydrALAZINE INJ 20 MG/ML VIAL 10 MG IV (19:48)
== END 2024-07-16 22:20 | disposition home or self-care (01) ==
PROVIDERS: Nurse Practitioner Primary Care; Emergency Provider Emergency Medicine; PCP Family Medicine
DX: I10 Essential (primary) hypertension (principal); R51.9 Headache, unspecified; R42 Dizziness and giddiness; R07.9 Chest pain, unspecified; R94.31 Abnormal electrocardiogram [ECG] [EKG]; I48.91 Unspecified atrial fibrillation
CPT/HCPCS: 36415; 70450; 71045; 80053; 83735; 83880; 84484; 85025; 85610; 85730; 93005; 99284; J0360

== ENCOUNTER → 2024-07-23 | Outpatient (CLI) | payer MEDICARE, SELFPAY ==
[2024-07-23 12:06] LABS: Albumin, Serum 4.3 gm/dL (3.4-4.8); Anion Gap 8 (7-16); BUN/Creatinine Ratio 24 Ratio (12-20); Blood Urea Nitrogen 19 mg/dL (9-23); Calcium 8.9 mg/dL (8.3-10.6); Calcium (Corrected) 8.9 mg/dL (8.5-10.1); Carbon Dioxide 29.6 mMol/L (20.0-31.0); Chloride 98 mMol/L (98-107); Creatinine (Component) 0.8 mg/dL (0.6-1.3); Glucose 95 mg/dL (74-106); Osmolality,Calculated 274 (275-295); Phosphorous 3.3 mg/dL (2.4-5.1); Potassium 4.4 mMol/L (3.4-5.1); Sodium 136 mMol/L (136-145); eGFR > 60 See Note
== END | disposition home or self-care (01) ==
LOC: COPL 10:28
PROVIDERS: PCP Internal Medicine; Referring Provider Internal Medicine; Visit Provider Internal Medicine
DX: I10 Essential (primary) hypertension (principal)
CPT/HCPCS: 36415; 80069

== ENCOUNTER → 2024-12-10 | Outpatient (CLI) | payer MEDICARE, SELFPAY ==
[2024-12-10 10:20] LABS: Sed Rate (ESR) 2 mm/hr (0-30)
[2024-12-10 10:42] LABS: C-Reactive Protein < 0.5 mg/dL (0.0-0.9)
[2024-12-10 16:30] LABS: RA Screen Positive (Negative)
[2024-12-10 16:38] LABS: Rheumatoid Factor Titer 1:64
== END | disposition home or self-care (01) ==
LOC: COPL 09:24
PROVIDERS: PCP Family Medicine; Referring Provider Internal Medicine Cardiovascular Disease; Visit Provider Internal Medicine Cardiovascular Disease
DX: R53.83 Other fatigue (principal)
CPT/HCPCS: 36415; 85652; 86140; 86430; 86431

== ENCOUNTER → 2025-02-01 | Outpatient (CLI) | payer MEDICARE, SELFPAY ==
[2025-02-01 13:12] LABS: Alanine Aminotransferase 16 U/L (10-49); Albumin, Serum 4.4 gm/dL (3.4-4.8); Alkaline Phosphatase 81 U/L (46-116); Aspartate Amino Transferase 25 U/L (0-34); Bilirubin,Direct < 0.1 mg/dL (0.0-0.3); Bilirubin,Total 0.2 mg/dL (0.3-1.2); Total Protein 6.3 gm/dL (5.7-8.2)
== END | disposition home or self-care (01) ==
LOC: COPL 11:35
PROVIDERS: PCP Family Medicine; Referring Provider Family Medicine; Visit Provider Family Medicine
DX: E78.2 Mixed hyperlipidemia (principal); I10 Essential (primary) hypertension; B35.1 Tinea unguium
CPT/HCPCS: 36415; 80076